=== PATIENT | male | born 1975 | race Caucasian/White ===

== ENCOUNTER → 2018-07-09 | Outpatient (CLI) | payer SELFPAY | END | disposition home or self-care (01) | LOC: LAB EV 15:54 → LAB SHORT 15:54 | DX: L03.115 Cellulitis of right lower limb (principal) | CPT/HCPCS: 87070; 87075; 87205 ==

== ENCOUNTER 2022-10-02 16:58 | Emergency (ER) | payer OTHER ==
[~2022-10-02] VITALS: Ht 180.3 cm; Wt 117.9 kg
[2022-10-02] MEDS ORDERED: CLOP75 PO (19:51)
[2022-10-02 20:00] VITALS: BP 142/86
== END 2022-10-02 20:00 | disposition home or self-care (01) ==
LOC: ER 16:58
DX: R04.0 Epistaxis (principal); F17.210 Nicotine dependence, cigarettes, uncomplicated
CPT/HCPCS: 30903; 99283-25

== ENCOUNTER 2022-10-04 10:02 | Emergency (ER) | payer OTHER ==
[~2022-10-04] VITALS: Ht 180.3 cm; Wt 117.9 kg
[~2022-10-04 10:02] MED LIST: CLOP75 PO
[2022-10-04 10:56] LABS: BASOPHILS ABSOLUTE AUTO 0.12 K/mm3 (0.00-0.23); BASOPHILS PERCENT AUTO 1 % (0-2); EOSINOPHILS ABSOLUTE AUTO 0.03 K/mm3 (0.00-0.68); EOSINOPHILS PERCENT AUTO 0 % (0-6); Hematocrit 44.6 % (37.0-53.0); Hemoglobin 15.5 g/dL (13.5-17.5); IMMATURE GRAN ABSOLUTE AUTO 0.11 K/mm3 (0.00-0.10); IMMATURE GRAN PERCENT AUTO 0 % (0-1); LYMPHOCYTES PERCENT AUTO 22 % (21-46); MONOCYTES ABSOLUTE AUTO 1.45 K/mm3 (0.16-1.47); MONOCYTES PERCENT AUTO 6 % (4-13); Mean Corpuscular HGB Conc 34.8 g/dL (31.5-36.5); Mean Corpuscular Volume 92 fL (80-100); Mean Platelet Volume 9.8 fL (9.1-12.4); NEUTROPHILS PERCENT AUTO 72 % (41-73); Platelet Count 357 K/mm3 (150-400); RDW Coefficient Variation 13.3 % (11.7-14.2); RDW Standard Deviation 44.8 fL (35.1-46.3); Red Blood Cell Count 4.84 M/mm3 (4.30-5.90); White Blood Cell Count 25.01 K/mm3 (4.00-11.30)
[2022-10-04 11:16] LABS: Bun/Creatinine Ratio 37.3 (12.0-20.0); Calcium, Blood 8.9 mg/dL (8.5-10.1); Creatinine, Blood 0.97 mg/dL (0.60-1.20); Potassium, Blood 4.3 mmol/L (3.5-5.5)
[2022-10-04 13:00] VITALS: BP 133/83
== END 2022-10-04 13:08 | disposition home or self-care (01) ==
LOC: ER 10:02
PROVIDERS: Emergency Medicine
DX: R04.0 Epistaxis (principal); D72.829 Elevated white blood cell count, unspecified; I10 Essential (primary) hypertension; E78.5 Hyperlipidemia, unspecified; F17.210 Nicotine dependence, cigarettes, uncomplicated; Z86.711 Personal history of pulmonary embolism; Z79.02 Long term (current) use of antithrombotics/antiplatelets
CPT/HCPCS: 30300; 80048; 85025; 96360; 99283-25; J7030

== ENCOUNTER 2023-12-31 11:17 | Observation (INO) | payer OTHER ==
[~2023-12-31] VITALS: Ht 180.3 cm; Wt 126.5 kg
[2023-12-31] MEDS ORDERED: LIPITOR80 MG PO (13:00)
[2023-12-31] MEDS ORDERED: ASPI81CH PO (13:01)
[2023-12-31] MEDS ORDERED: LOSA50 PO (13:01)
[2023-12-31] MEDS ORDERED: FLU VACC TS2024-25(6MOS UP)/PF 45 MCG/0.5 ML SYRINGE IM SCH (14:25)
[2023-12-31 14:51] LABS: Hematocrit 51.4 % (37.0-53.0); Mean Corpuscular HGB 31.7 pg (26.0-34.0); Mean Corpuscular Volume 91 fL (80-100); Mean Platelet Volume 9.9 fL (9.1-12.4); Platelet Count 312 K/mm3 (150-400); RDW Coefficient Variation 13.1 % (11.7-14.2); RDW Standard Deviation 43.6 fL (35.1-46.3); Red Blood Cell Count 5.68 M/mm3 (4.30-5.90); White Blood Cell Count 12.36 K/mm3 (4.00-11.30)
[2023-12-31 14:54] LABS: Albumin, Blood 3.5 g/dL (3.4-5.0); Albumin/Globulin Ratio 0.9 (0.8-1.8); Bilirubin, Total 0.6 mg/dL (0.1-1.0); Bun/Creatinine Ratio 11.9 (12.0-20.0); Calcium, Blood 9.3 mg/dL (8.5-10.1); Creatinine, Blood 0.84 mg/dL (0.60-1.20); Globulin, Blood 3.7 g/dL (2.2-4.0); Potassium, Blood 4.1 mmol/L (3.5-5.5); Total Protein, Blood 7.2 g/dL (6.4-8.2)
[2023-12-31] MEDS ORDERED: Atorvastatin 40 MG Tab PO SCH (15:00)
[2023-12-31 15:29] LABS: BASOPHILS ABSOLUTE MAN 0.12 K/mm3 (0.00-0.23); BASOPHILS PERCENT MAN 1 % (0-2); EOSINOPHILS PERCENT MAN 0 % (0-6); LYMPHOCYTES % ATYPICAL MANUAL 3 % (0-0); LYMPHOCYTES ABSOLUTE MAN 4.82 K/mm3 (0.84-5.20); LYMPHOCYTES PERCENT MAN 36 % (21-46); MONOCYTES ABSOLUTE MAN 0.86 K/mm3 (0.16-1.47); MONOCYTES PERCENT MAN 7 % (4-13); NEUTROPHILS ABSOLUTE MAN 6.55 K/mm3 (1.96-9.15); SEG NEUTROPHILS PERCENT MAN 53 % (41-73); TOTAL CELLS COUNTED 100
[2023-12-31] MEDS ORDERED: NS 250 ML IV ONE (16:03)
[2023-12-31] MEDS ORDERED: Heparin Sodium 1000 Units/ML 10ML MDV ONE ×2 (16:04→17:06)
[2023-12-31] MEDS ORDERED: NS 1,000 ML IV ONE ×2 (16:04→16:34)
[2023-12-31] MEDS ORDERED: FentaNYL Citrate 50 MCG/ML 2 ML Injection ONE ×3 (16:34→17:04)
[2023-12-31] MEDS ORDERED: Midazolam HCl 1MG / ML 2ML Vial ONE ×2 (16:34→16:59)
[2023-12-31] MEDS ORDERED: HydrALAZINE HCl 20 MG / ML 1ML Vial ONE (17:06)
[2023-12-31] MEDS ORDERED: Alteplase Recombinant 2 MG / Vial ONE (17:13)
--- NOTE | 2023-12-31 17:13 | NUR ---
REPORT RECEIEVED FROM ED RN AT 1709. PT CURRENTLY IN PLASTIC ROLLER.
[2023-12-31] MEDS ORDERED: Nitroglycerin 2 MG/20 ML BTL ONE (17:16)
[2023-12-31 17:56] VITALS: BP 133/82
--- NOTE | 2023-12-31 18:33 | NUR ---
ARRIVAL TO UNIT PT ARRIVED FROM WORKFORCE SPECIALIST AT 1755 VIA HOSPITAL BED AND ON RA, BEDSIDE REPORT FROM WORKFORCE SPECIALIST STAFF. ANGIOSEAL IN PLACE, NO BLEEDING, NO HEMATOMA, OR TENDERNESS NOTED. PT A/OX4 AT TIME OF ARRIVAL. PT INSTRUCTED NOT TO BEND AT WASTE AND INFORMED OF FREQUESNT POST PROCEDURE VITALS. PT ORIENTED TO ROOM AND CALL LIGHT. VSS AT TIME OF ARRIVAL. PT INFOMRED OF STENT CARD, PT REQUESTED STENT CARD TO BE PUT IN BAG WITH HIS PANTS AND WALLET. PT ABLE TO ANSWER HX QUESTIONS.
[2023-12-31] MEDS ORDERED: Ondansetron HCl 2 MG / ML 2ML Vial IV PRN (20:05)
[2023-12-31 20:14] LABS: Anti-Xa UFH, PHA Monitoring 0.5 IU/mL; International Normalized Ratio 1.05; Prothrombin Time Results 11.2 Sec (9.7-11.5)
[2023-12-31] MEDS ORDERED: Heparin Sodium,Porcine/0.5 NS 500 ML IV SCH (20:50)
[2023-12-31 21:00] VITALS: BP 158/82
[2023-12-31 23:15] VITALS: BP 138/103
[2024-01-01 03:02] VITALS: BP 157/67
[2024-01-01 03:55] LABS: BASOPHILS ABSOLUTE AUTO 0.09 K/mm3 (0.00-0.23); BASOPHILS PERCENT AUTO 1 % (0-2); EOSINOPHILS ABSOLUTE AUTO 0.07 K/mm3 (0.00-0.68); EOSINOPHILS PERCENT AUTO 1 % (0-6); Hematocrit 49.4 % (37.0-53.0); Hemoglobin 17.3 g/dL (13.5-17.5); IMMATURE GRAN ABSOLUTE AUTO 0.04 K/mm3 (0.00-0.10); IMMATURE GRAN PERCENT AUTO 0 % (0-1); LYMPHOCYTES ABSOLUTE AUTO 4.37 K/mm3 (0.84-5.20); LYMPHOCYTES PERCENT AUTO 34 % (21-46); MONOCYTES PERCENT AUTO 7 % (4-13); Mean Corpuscular HGB 31.8 pg (26.0-34.0); Mean Corpuscular Volume 91 fL (80-100); Mean Platelet Volume 9.8 fL (9.1-12.4); NEUTROPHILS ABSOLUTE AUTO 7.41 K/mm3 (1.96-9.15); NEUTROPHILS PERCENT AUTO 58 % (41-73); Platelet Count 292 K/mm3 (150-400); RDW Coefficient Variation 13.2 % (11.7-14.2); RDW Standard Deviation 43.2 fL (35.1-46.3); Red Blood Cell Count 5.44 M/mm3 (4.30-5.90); White Blood Cell Count 12.88 K/mm3 (4.00-11.30)
[2024-01-01 04:18] LABS: Albumin, Blood 3.4 g/dL (3.4-5.0); Bilirubin, Total 0.9 mg/dL (0.1-1.0); Bun/Creatinine Ratio 9.9 (12.0-20.0); Calcium, Blood 8.7 mg/dL (8.5-10.1); Creatinine, Blood 0.81 mg/dL (0.60-1.20); Globulin, Blood 3.5 g/dL (2.2-4.0); Potassium, Blood 3.5 mmol/L (3.5-5.5); Total Protein, Blood 6.9 g/dL (6.4-8.2)
[2024-01-01] MEDS ORDERED: Dose Adjust by Pharmacy XX STA (04:24)
--- NOTE | 2024-01-01 05:09 | NUR ---
SHIFT SUMMARY PT A&O X4, ABLE TO MAKE NEEDS KNOWN. VSS, AFEBRILE, SPO2 >92% RA. TELE SHOWS SR 80'S. PT DENIES CP/ PRESSURE. PT HAD RLE ANGIO DONE ON 12/31/23. L GROIN SITE RECOVERED THIS SHIFT, SITE IS FREE FROM BLEEDING, OR HEMATOMA. PT DENIES PAIN. PT UP TO USE RESTROOM SBA FOR LINE MANAGEMENT. HEPARIN GTT RUNNING PER EMAR. PT IS RESTING QUIETLY IN BED, BREATHING EVEN AND UNLABORED, CALL LIGHT IN REACH.
[2024-01-01 07:42] VITALS: BP 162/75
[2024-01-01] MEDS ORDERED: Aspirin 81 MG Chew PO SCH (08:00)
[2024-01-01] MEDS ORDERED: Enoxaparin 40 MG/0.4 ML SYR SC SCH (09:00)
[2024-01-01] MEDS ORDERED: Losartan Potassium 50 MG Tab PO SCH (09:00)
[2024-01-01 12:48] VITALS: BP 153/85
--- NOTE | 2024-01-01 15:25 | NUR ---
DISCHARGE UPDATE DISCHARGE PACKET GONE OVER WITH PT AT 1510. PT DISCHARGED AT 1525 VIA WHEELCHAIR AND ON RA. PT ABLE TO DRESS HIMSELF AND TRANSFER TO AND FROM WHEELCHAIR ON HIS OWN. DISCHARGE PACKET WITH PT AT TIME OF DISCHARGE. PT STENT CARD IN PT'S WALLET BEFORE LEAVING PCU ROOM.
== END 2024-01-01 15:32 | disposition home or self-care (01) ==
LOC: ER 11:17 → PCU 11:18
PROVIDERS: Radiology Diagnostic Radiology; ADMIT Family Medicine
PROC: 047K34Z Dilation of Right Femoral Artery with Drug-eluting Intraluminal Device, Percutaneous Approach (ICD-10-PCS; 2023-12-31)
PROC: 047P3ZZ Dilation of Right Anterior Tibial Artery, Percutaneous Approach (ICD-10-PCS; 2023-12-31)
PROC: 3E05317 Introduction of Other Thrombolytic into Peripheral Artery, Percutaneous Approach (ICD-10-PCS; 2023-12-31)
PROC: 3E03317 Introduction of Other Thrombolytic into Peripheral Vein, Percutaneous Approach (ICD-10-PCS; principal; 2024-01-01)
DX: I70.221 Atherosclerosis of native arteries of extremities with rest pain, right leg (principal); I25.10 Atherosclerotic heart disease of native coronary artery without angina pectoris; F17.210 Nicotine dependence, cigarettes, uncomplicated; I10 Essential (primary) hypertension; E78.5 Hyperlipidemia, unspecified; F32.A Depression, unspecified; R73.03 Prediabetes; I07.1 Rheumatic tricuspid insufficiency; Z86.73 Personal history of transient ischemic attack (TIA), and cerebral infarction without residual deficits; Z86.711 Personal history of pulmonary embolism; Z79.82 Long term (current) use of aspirin; Z79.899 Other long term (current) drug therapy; Z87.81 Personal history of (healed) traumatic fracture; Z98.890 Other specified postprocedural states
CPT/HCPCS: 36415; 37226; 37228; 37232; 73630; 75625; 75716; 75774; 76937; 80053; 85025; 85520; 85610; 85730; 93306; 93926; 96374; 96376; 99152; 99153; 99285-25; A9270; C1725; C1760; C1769; C1874; C1887; C1894; G0378; J0360; J1644; J2250; J2997; J3010; J7030; J7050; Q9967

== ENCOUNTER → 2024-01-17 | Outpatient (CLI) | payer OTHER ==
[~2024-01-17] MED LIST changes: +ASPI81CH PO; +LIPITOR80 MG PO; +LOSA50 PO
== END ==
LOC: LAB 07:26 → LAB SHORT 07:26
DX: I96 Gangrene, not elsewhere classified (principal)
CPT/HCPCS: 88305; 88311